=== PATIENT | male | born 1965 | race Caucasian/White ===

== ENCOUNTER 2017-03-08 14:16 | Observation (INO) | payer OTHER ==
[~2017-03-08] VITALS: Ht 193 cm; Wt 91.3 kg
[2017-03-08] VITALS (7 sets, daily range): BP systolic 128–137; BP diastolic 81–90; PULSE 48–57; RESP 18–20; TEMP 97.5–97.9; O2SAT 94–98
[2017-03-08] MEDS ORDERED: PANT40TA3 PO (14:25)
[2017-03-08 14:36] LABS: BASOPHIL # 0.1 TH/MM3 (0-0.2); BASOPHIL % 1.4 % (0.0-2.0); EOSINOPHIL # 0.1 TH/MM3 (0-0.4); EOSINOPHIL % 1.9 % (0.0-4.0); HEMATOCRIT 41.6 % (39.0-51.0); HEMO FLAGS DIFF FINAL; LYMPH % 20.5 % (9.0-44.0); LYMPHOCYTE # 1.5 TH/MM3 (1.0-4.8); MEAN CELL VOLUME 91.8 FL (80.0-100.0); MEAN CORPUSCULAR HGB CONC 33.8 % (32.0-36.0); MONO % 11.1 % (0.0-8.0); NEUT % 65.1 % (16.0-70.0); PLATELET COUNT 242 TH/MM3 (150-450); RED BLOOD COUNT 4.53 MIL/MM3 (4.50-5.90); WHITE BLOOD COUNT 7.5 TH/MM3 (4.0-11.0)
[2017-03-08 14:45] LABS: CHLORIDE 107 MEQ/L (98-107); POTASSIUM 3.9 MEQ/L (3.5-5.1); SODIUM (NA) 140 MEQ/L (136-145)
[2017-03-08 14:48] LABS: ANION GAP 8 MEQ/L (5-15); BICARBONATE 25.4 MEQ/L (21.0-32.0); BLOOD UREA NITROGEN 15 MG/DL (7-18)
[2017-03-08 14:51] LABS: GLOMERULAR FILTRATION RATE 100 ML/MIN (>89)
--- NOTE | 2017-03-08 14:54 | PD ---
HPI Chief Complaint: Chest Pain Time Seen by Provider: 14:39 Travel History International Travel<30 days: No Contact w/Intl Traveler<30days: No Traveled to known affect area: No History of Present Illness HPI 51-year-old male complains of chest pain. Patient states that he was a lot of baking yesterday in the yard. Patient states that he took a 4 mile walk this morning. Patient states that he started having substernal chest discomfort subsequently. Patient states that the chest discomfort started substernally and spreading to the anterior chest wall. Patient denies any palpitation nausea diaphoresis. Patient denies any coughing congestion fever chills. Patient denies history hypertension, diabetes, hyperlipidemia. Patient is a smoker. Patient has family history heart disease. PFSH Past Medical History GERD: Yes Influenza Vaccination: Yes Past Surgical History Abdominal Surgery: Yes (HERNIORRHAPHY) Social History Alcohol Use: Yes (COUPLE TIMES PER WEEK) Tobacco Use: Yes (1PPD) Substance Use: No Allergies-Medications (Allergen,Severity, Reaction): Coded Allergies: No Known Allergies (Unverified , 03/08/17) Reported Meds & Prescriptions Reported Meds & Active Scripts Active Reported Pantoprazole (Pantoprazole Sodium) 40 Mg Tab 40 Mg PO DAILY Review of Systems General / Constitutional: No: Fever Eyes: No: Visual changes HENT: No: Headaches Cardiovascular: Positive: Chest Pain or Discomfort Respiratory: No: Shortness of Breath Gastrointestinal: No: Abdominal Pain Genitourinary: No: Dysuria Musculoskeletal: No: Pain Skin: No Rash Neurologic: No: Weakness Psychiatric: No: Depression Endocrine: No: Polydipsia Hematologic/Lymphatic: No: Easy Bruising Physical Exam Narrative GENERAL: Well-nourished, well-developed patient. SKIN: Focused skin assessment warm/dry. HEAD: Normocephalic. EYES: No scleral icterus. No injection or drainage. NECK: Supple, trachea midline. No JVD or lymphadenopathy. CARDIOVASCULAR: Regular rate and rhythm without murmurs, gallops, or rubs. RESPIRATORY: Breath sounds equal bilaterally. No accessory muscle use. GASTROINTESTINAL: Abdomen soft, non-tender, nondistended. MUSCULOSKELETAL: No cyanosis, or edema. BACK: Nontender without obvious deformity. No CVA tenderness. Neurologic exam normal. Data Data Last Documented VS Vital Signs Date Time Temp Pulse Resp B/P Pulse Ox O2 Delivery O2 Flow Rate FiO2 03/08/17 14:32 96 Room Air 03/08/17 14:22 97.8 55 18 137/90 Orders Electrocardiogram (03/08/17 14:27) Complete Blood Count With Diff (03/08/17 14:27) Basic Metabolic Panel (Bmp) (03/08/17 14:27) Ckmb (Isoenzyme) Profile (03/08/17 14:27) Troponin I (03/08/17 14:27) Chest, Single Ap (03/08/17 14:27) Iv Access Insert/Monitor (03/08/17 14:27) Ecg Monitoring (03/08/17 14:27) Oxygen Administration (03/08/17 14:27) Oximetry (03/08/17 14:27) Aspirin (Aspirin) (03/08/17 15:00) CKMB (03/08/17 14:20) CKMB% (03/08/17 14:20) Labs Laboratory Tests Test 03/08/17 14:20 White Blood Count 7.5 TH/MM3 Red Blood Count 4.53 MIL/MM3 Hemoglobin 14.1 GM/DL Hematocrit 41.6 % Mean Corpuscular Volume 91.8 FL Mean Corpuscular Hemoglobin 31.0 PG Mean Corpuscular Hemoglobin 33.8 % Concent Red Cell Distribution Width 13.0 % Platelet Count 242 TH/MM3 Mean Platelet Volume 7.9 FL Neutrophils (%) (Auto) 65.1 % Lymphocytes (%) (Auto) 20.5 % Monocytes (%) (Auto) 11.1 % Eosinophils (%) (Auto) 1.9 % Basophils (%) (Auto) 1.4 % Neutrophils # (Auto) 5.0 TH/MM3 Lymphocytes # (Auto) 1.5 TH/MM3 Monocytes # (Auto) 0.8 TH/MM3 Eosinophils # (Auto) 0.1 TH/MM3 Basophils # (Auto) 0.1 TH/MM3 CBC Comment DIFF FINAL Differential Comment Sodium Level 140 MEQ/L Potassium Level 3.9 MEQ/L Chloride Level 107 MEQ/L Carbon Dioxide Level 25.4 MEQ/L Anion Gap 8 MEQ/L Blood Urea Nitrogen 15 MG/DL Creatinine 0.81 MG/DL Estimat Glomerular Filtration 100 ML/MIN Rate Random Glucose 85 MG/DL Calcium Level 8.7 MG/DL Total Creatine Kinase 271 U/L Creatine Kinase MB 3.4 NG/ML Troponin I LESS THAN 0.02 NG/ML MDM Medical Decision Making Medical Screen Exam Complete: Yes Emergency Medical Condition: Yes Interpretation(s) 1450 3 PM. EKG shows sinus rhythm nonspecific ST-T wave change. Incomplete right bundle-branch block. 15 12 PM. CBC within normal limit. BMP within normal limit. Cardiac enzymes are normal. Differential Diagnosis Differential diagnosis including musculoskeletal, angina, CA, PE, pneumothorax. Narrative Course 51-year-old male with chest pain. Aspirin 325 mg by mouth given. Diagnosis Primary Impression: Chest pain Qualified Code: R07.9 - Chest pain, unspecified type Rommel Lazo MD Mar 08, 2017 14:53
[2017-03-08 14:55] LABS: CREATINE KINASE 271 U/L (39-308)
[2017-03-08] MEDS ORDERED: ASPIRIN 325 MG TAB PO ONE (15:00)
[2017-03-08 15:07] LABS: CKMB 3.4 NG/ML (0.5-3.6)
[2017-03-08] MEDS ORDERED: ACETAMINOPHEN 500 MG CPLT PO PRN (15:30)
[2017-03-08] MEDS ORDERED: NITROGLYCERIN 0.4 MG SL 25 TABS/BTL SL PRN (15:30)
[2017-03-08] MEDS ORDERED: SODIUM CHLORIDE 0.9% FLUSH 10 ML FLUSH IV FLUSH PRN ×2 (15:30→15:45)
[2017-03-08] MEDS ORDERED: ONDANSETRON HCL 4 MG/2 ML VIAL IV PRN (15:30)
--- NOTE | 2017-03-08 15:42 | RADRPT ---
EXAM DATE/TIME: 03/08/2017 14:52 [facility] COMPARISON: No previous studies available for comparison. INDICATIONS : Chest pains MEDICAL HISTORY : None. SURGICAL HISTORY : None. ENCOUNTER: Initial ACUITY: 1 day PAIN SCORE: 8/10 LOCATION: Bilateral chest FINDINGS: A single view of the chest demonstrates the lungs to be symmetrically aerated without evidence of mas s, infiltrate or effusion. The cardiomediastinal contours are unremarkable. Osseous structures are intact. CONCLUSION: No acute disease. Sudeep Pennington MD on March 08, 2017 at 15:40 Board Certified Radiologist. This report was verified electronically.
[2017-03-08] MEDS ORDERED: SENNOSIDES 8.6 MG TAB PO PRN (15:45)
[2017-03-08] MEDS ORDERED: LACTULOSE SYRUP 20 GM/30 ML CUP PO PRN (15:45)
[2017-03-08] MEDS ORDERED: NALOXONE HCL 0.4 MG/ML AMP IV PRN (15:45)
[2017-03-08] MEDS ORDERED: ONDANSETRON HCL 4 MG/2 ML VIAL IVP PRN (15:45)
[2017-03-08] MEDS ORDERED: BISACODYL 10 MG SUPP RECTAL PRN (15:45)
[2017-03-08] MEDS ORDERED: ACETAMINOPHEN 325 MG TAB PO PRN (15:45)
[2017-03-08] MEDS ORDERED: MAGNESIUM HYDROXIDE SUSP 30 ML CUP PO PRN (15:45)
[2017-03-08] MEDS ORDERED: ENOXAPARIN SODIUM 40 MG/0.4 ML SYRINGE SQ SCH (16:00)
--- NOTE | 2017-03-08 17:47 | HHI.HP ---
[facility] Primary Care Physician No Primary Care Physician Admission Diagnosis chest pain Diagnoses: Chief Complaint: Chest pain Travel History International Travel<30 Days: No Contact w/Intl Traveler <30 Da: No Traveled to Known Affected Are: No History of Present Illness Mr. Macario is a pleasant 51-year-old male with a history of GERD who presents to the emergency department due to chest pain. At around 12:00 PM on after walking about 4 miles, patient experienced substernal and anterior chest discomfort which felt like tightness without any radiation, nausea vomiting or diaphoresis. During his walk he did not have any chest discomfort. Patient reports working in his patio yesterday where he did a lot digging using a shovel. He did not have any chest discomfort until this noon. He denies any cough, fever, chills. No abdominal pain. No changes in bowel or bladder habits. Review of Systems Except as stated in HPI: all other systems reviewed are Neg Past Family Social History Past Medical History GERD Past Surgical History No major surgical history Reported Medications Pantoprazole (Pantoprazole Sodium) 40 Mg Tab 40 Mg PO DAILY Allergies: Coded Allergies: No Known Allergies (Unverified , 03/08/17) Family History Father from heart disease. Social History Patient smokes about 1 pack a day for the last 10 years. Drinks few times a week. Physical Exam Vital Signs Vital Signs Date Time Temp Pulse Resp B/P Pulse Ox O2 Delivery O2 Flow Rate FiO2 03/08/17 17:08 97.5 56 18 131/84 97 03/08/17 17:07 97.5 56 18 131/84 97 03/08/17 16:00 48 20 128/81 96 Room Air 03/08/17 14:32 96 Room Air 03/08/17 14:30 98 Room Air 03/08/17 14:22 97.8 55 18 137/90 96 Physical Exam GENERAL: This is a well-nourished, well-developed patient, in no apparent distress. SKIN: No rashes, ecchymoses or lesions. Warm and dry. HEAD: Atraumatic. Normocephalic. No temporal or scalp tenderness. EYES: Pupils equal round and reactive. No injection or drainage. ENT: Nose without bleeding, purulent drainage or septal hematoma. Airway patent. NECK: Trachea midline. No lymphadenopathy. Supple, nontender, no meningeal signs. CARDIOVASCULAR: Regular rate and rhythm without murmurs, gallops, or rubs. No JVD. No pain on palpation. RESPIRATORY: Clear to auscultation. Breath sounds equal bilaterally. No wheezes , rales, or rhonchi. GASTROINTESTINAL: Abdomen soft, non-tender, nondistended. No guarding. MUSCULOSKELETAL: Extremities without clubbing, cyanosis, or edema. NEUROLOGICAL: Awake and alert. Cranial nerves II through XII intact. No focal neurological deficits. Normal speech. Laboratory Laboratory Tests Test 03/08/17 14:20 White Blood Count 7.5 Red Blood Count 4.53 Hemoglobin 14.1 Hematocrit 41.6 Mean Corpuscular Volume 91.8 Mean Corpuscular Hemoglobin 31.0 Mean Corpuscular Hemoglobin 33.8 Concent Red Cell Distribution Width 13.0 Platelet Count 242 Mean Platelet Volume 7.9 Neutrophils (%) (Auto) 65.1 Lymphocytes (%) (Auto) 20.5 Monocytes (%) (Auto) 11.1 Eosinophils (%) (Auto) 1.9 Basophils (%) (Auto) 1.4 Neutrophils # (Auto) 5.0 Lymphocytes # (Auto) 1.5 Monocytes # (Auto) 0.8 Eosinophils # (Auto) 0.1 Basophils # (Auto) 0.1 CBC Comment DIFF FINAL Differential Comment Sodium Level 140 Potassium Level 3.9 Chloride Level 107 Carbon Dioxide Level 25.4 Anion Gap 8 Blood Urea Nitrogen 15 Creatinine 0.81 Estimat Glomerular Filtration 100 Rate Random Glucose 85 Calcium Level 8.7 Total Creatine Kinase 271 Creatine Kinase MB 3.4 Troponin I LESS THAN 0.02 Result Diagram: 03/08/17 1420 03/08/17 142 Imaging Last Impressions Chest X-Ray 03/08/171426 Signed Impressions: Service Date/Time: Wednesday, March 08, 2017 14:52 - CONCLUSION: No acute disease. Sudeep Pennington MD Assessment and Plan Problem List: (1) Chest pain ICD Code: R07.9 Status: Acute (2) GERD (gastroesophageal reflux disease) ICD Code: K21.9 Status: Acute (3) Tobacco abuse ICD Code: Z72.0 Status: Acute Assessment and Plan Mr. Macario is a pleasant 51-year-old male with a history of GERD who presents to the emergency department due to chest discomfort in his substernal and anterior chest wall after he walked 4 miles around 12:00 PM on 03/08/2017. Patient denies any radiation of the pain or any nausea vomiting or diaphoresis. - Acute chest pain - Patient's chest pain has typical features including substernal and anterior chest tightness. - Received Aspirin 325mg once. Will continue Aspirin 81mg Qday. - Lipid profile in the AM. Will determine need for statin based on ASCVD score. - Will probably do Exercise stress test in the AM. - GERD - continue Protonix - Tobacco abuse - Counselled patient regarding tobacco cessation. Full code. Lovenox. Problem Qualifiers (1) Chest pain: Qualified Code: R07.9 - Chest pain, unspecified type Neelima Gerardo DO Mar 08, 2017 5:47 pm
[2017-03-08 19:02] LABS: CREATINE KINASE 214 U/L (39-308)
[2017-03-08 19:14] LABS: CKMB 2.8 NG/ML (0.5-3.6)
[2017-03-08] MEDS: SODIUM CHLORIDE 0.9% FLUSH 10 ML FLUSH IV FLUSH SCH (20:32)
[2017-03-08] MEDS: DOCUSATE SODIUM 50 MG/SENNA 8.6 MG TAB PO SCH (20:32)
[2017-03-08] MEDS ORDERED: SODIUM CHLORIDE 0.9% FLUSH 10 ML FLUSH IV FLUSH SCH (21:00)
[2017-03-08 22:22] LABS: CREATINE KINASE 191 U/L (39-308)
[2017-03-08 22:34] LABS: CKMB 2.2 NG/ML (0.5-3.6)
[2017-03-09] VITALS: BP 124/84; PULSE 48; RESP 19; TEMP 97; O2SAT 96
[2017-03-09 04:00] VITALS: BP 121/84; PULSE 45; RESP 19; TEMP 96.7; O2SAT 96
[2017-03-09 08:00] VITALS: BP 122/87; PULSE 47; PULSE 53; RESP 16; TEMP 97.2; O2SAT 97
[2017-03-09] MEDS: DOCUSATE SODIUM 50 MG/SENNA 8.6 MG TAB PO SCH (08:28)
[2017-03-09] MEDS: SODIUM CHLORIDE 0.9% FLUSH 10 ML FLUSH IV FLUSH SCH (08:29)
[2017-03-09] MEDS ORDERED: ASPIRIN EC 81 MG TABEC PO SCH (09:00)
[2017-03-09] MEDS ORDERED: PANTOPRAZOLE SOD 40 MG DELAYED RELEASE TAB PO SCH (09:00)
[2017-03-09 10:19] LABS: AUTOMATED NEUTROPHIL # 4.2 TH/MM3 (1.8-7.7); BASOPHIL % 0.8 % (0.0-2.0); EOSINOPHIL # 0.1 TH/MM3 (0-0.4); HEMATOCRIT 44.8 % (39.0-51.0); HEMO FLAGS DIFF FINAL; LYMPH % 18.1 % (9.0-44.0); LYMPHOCYTE # 1.1 TH/MM3 (1.0-4.8); MEAN CELL VOLUME 93.1 FL (80.0-100.0); MEAN CORPUSCULAR HEMOGLOBIN 30.9 PG (27.0-34.0); MEAN CORPUSCULAR HGB CONC 33.2 % (32.0-36.0); MONO % 10.6 % (0.0-8.0); NEUT % 68.5 % (16.0-70.0); PLATELET COUNT 255 TH/MM3 (150-450); RED BLOOD COUNT 4.82 MIL/MM3 (4.50-5.90); RED CELL DISTRIBUTION WIDTH 13.3 % (11.6-17.2); WHITE BLOOD COUNT 6.1 TH/MM3 (4.0-11.0)
[2017-03-09 10:29] LABS: POTASSIUM 3.9 MEQ/L (3.5-5.1)
[2017-03-09 10:32] LABS: BICARBONATE 24.1 MEQ/L (21.0-32.0)
--- NOTE | 2017-03-09 11:12 | HHI.PR ---
Subjective Remarks Follow up for chest pain. Patient is currently doing well. No acute concerns. Denies any chest pain, SOB, fever, chills. Finished exercise stress. Objective Vitals Vital Signs Date Time Temp Pulse Resp B/P Pulse Ox O2 Delivery O2 Flow Rate FiO2 03/09/17 08:00 53 03/09/17 04:00 96.7 45 19 121/84 96 03/09/17 00:00 97.0 48 19 124/84 96 03/08/17 20:30 96 21 03/08/17 20:00 56 03/08/17 20:00 97.9 57 19 132/83 94 03/08/17 17:08 97.5 56 18 131/84 97 03/08/17 17:07 97.5 56 18 131/84 97 03/08/17 16:00 48 20 128/81 96 Room Air 03/08/17 14:32 96 Room Air 03/08/17 14:30 98 Room Air 03/08/17 14:22 97.8 55 18 137/90 96 I/O 03/08/17 03/08/17 03/08/17 03/09/17 03/09/17 03/09/17 07:00 15:00 23:00 07:00 15:00 23:00 Intake Total 120 ml Balance 120 ml Intake Oral 120 ml # Voids 1 1 Result Diagram: 03/09/17 1000 03/09/17 1000 Imaging Last Impressions Chest X-Ray 03/08/17 1427 Signed Impressions: Service Date/Time: Wednesday, March 08, 2017 14:52 - CONCLUSION: No acute disease. Sudeep Pennington MD Objective Remarks GENERAL: AOX3, NAD. SKIN: Warm and dry. HEAD: Normocephalic. EYES: No scleral icterus. No injection or drainage. NECK: Supple, trachea midline. No JVD or lymphadenopathy. CARDIOVASCULAR: Regular rate and rhythm without murmurs, gallops, or rubs. RESPIRATORY: Breath sounds equal bilaterally. No accessory muscle use. GASTROINTESTINAL: Abdomen soft, non-tender, nondistended. MUSCULOSKELETAL: No cyanosis, or edema. BACK: Nontender without obvious deformity. No CVA tenderness. Procedures Exercise Stress test - negative. A/P Problem List: (1) Chest pain ICD Code: R07.9 Status: Acute (2) GERD (gastroesophageal reflux disease) ICD Code: K21.9 Status: Acute (3) Tobacco abuse ICD Code: Z72.0 Status: Acute Assessment and Plan Mr. Macario is a pleasant 51-year-old male with a history of GERD who presents to the emergency department due to chest discomfort in his substernal and anterior chest wall after he walked 4 miles around 12:00 PM on 03/08/2017. Patient denies any radiation of the pain or any nausea vomiting or diaphoresis. - Acute chest pain - Patient's chest pain has typical features including substernal and anterior chest tightness. - Received Aspirin 325mg once. Will continue Aspirin 81mg Qday. - Lipid profile pending. Will determine need for statin based on ASCVD score. - Exercise stress test completed. Negative stress test. Troponins x 3 negative. - Will discharge patient home. - GERD - continue Protonix - Tobacco abuse - Counselled patient regarding tobacco cessation. Full code. Lovenox. Discharge patient to home Condition on discharge: Improved Regular Diet as tolerated Ad Emani activity Rx written: - Aspirin 81mg Qday. - Will place patient on Statin if ASCVD score is high enough based on lipid profile. Lipid profile pending. Follow-up with primary care physician within one week. Problem Qualifiers (1) Chest pain: Qualified Code: R07.9 - Chest pain, unspecified type Neelima Gerardo DO Mar 09, 2017 11:12 am
[2017-03-09] MEDS ORDERED: ASPI81TA11 PO (11:25)
[2017-03-09 13:28] LABS: HDL CHOLESTEROL 89.7 MG/DL (40.0-60.0)
--- NOTE | 2017-03-09 15:15 | EKG ---
Date Performed: 03/08/2017 Time Performed: 18:31:49 PTAGE: 51 years EKG: SINUS BRADYCARDIA MODERATE INTRAVENTRICULAR CONDUCTION DELAY Since previous tracing, no sig nificant change noted BORDERLINE ECG PREVIOUS TRACING : 03/08/2017 14.23 DOCTOR: Kai Hines Interpretating Date/Time 03/09/2017 15:15:27
--- NOTE | 2017-03-09 15:15 | EKG ---
Date Performed: 03/08/2017 Time Performed: 14:23:18 PTAGE: 51 years EKG: SINUS BRADYCARDIA INCOMPLETE RIGHT BUNDLE BRANCH BLOCK BORDERLINE ECG NO PREVIOUS TRACING DOCTOR: Kai Hines Interpretating Date/Time 03/09/2017 15:15:18
--- NOTE | 2017-03-09 15:16 | EKG ---
Date Performed: 03/08/2017 Time Performed: 21:47:51 PTAGE: 51 years EKG: SINUS BRADYCARDIA MODERATE INTRAVENTRICULAR CONDUCTION DELAY Since previous tracing, no sig nificant change noted BORDERLINE ECG PREVIOUS TRACING : 03/08/2017 18.31 DOCTOR: Kai Hines Interpretating Date/Time 03/09/2017 15:15:49
--- NOTE | 2017-03-11 07:36 | TR ---
Date Performed: 03/09/2017 Time Performed: 09:00:41 DOCTOR: Bill Seymour DRUG LIST: CLINICAL HISTORY: CHEST PAIN REASON FOR TEST: Chest pain REASON FOR ENDING: OBSERVATION: CONCLUSION: Patient tolerated CHAPO protocol withTotal Exercise Time=11:19 Maximum PD=984 % Max HR Achieved=87.0% Maximum ZD=354/80. Testing stopped secondary to goal achieved. No chest/arm pain du ring exercise. HR and BP appropriate response to exercise and HR and BP recovered quickly. COMMENTS: Patient exercised using the Chapo protocol. No electrocardiographic changes were seen to suggest ischemia. Hemodynamic response to exercise was normal. No significant arrhythmia was prese nt.
== END 2017-03-09 15:25 | disposition home or self-care (01) ==
LOC: PHED 14:16 → PHEDA 15:17 → UNDOADMOB 15:17 → PHEDA 16:40 → PH5A 16:40 → UNDODISOB 03-09 15:25
PROVIDERS: ADMIT Hospitalist; ATTEND Hospitalist
DX: R07.89 Other chest pain (principal); I45.10 Unspecified right bundle-branch block; R00.1 Bradycardia, unspecified; K21.9 Gastro-esophageal reflux disease without esophagitis; F17.200 Nicotine dependence, unspecified, uncomplicated; Z82.49 Family history of ischemic heart disease and other diseases of the circulatory system
CPT/HCPCS: 71010; 80048; 80061; 82550; 82552; 84484; 85025; 93005; 93017; 99285; G0378; J1650